=== PATIENT | male | born 1980 | race Caucasian/White ===

== ENCOUNTER 2020-11-07 13:15 | Emergency (ER) | payer OTHER ==
[~2020-11-07] VITALS: Ht 177.8 cm; Wt 120.2 kg
[2020-11-07 13:19] VITALS: BP 160/100
--- NOTE | 2020-11-07 13:28 | NUR ---
BIB C/O LAC WOUND TO LEFT THUMB X S/P INJURY 4 DAYS. LAST TDAP 3 YEARS AGO. WOUND C/D, NO BLEEDING NOTED AT THIS TIME. PATIENT STATES PAIN OF 5/10 AT THIS TIME.
--- NOTE | 2020-11-07 13:31 | NUR ---
Patient being evaluated by TAMICA MUKHERJEE at bedside.
[2020-11-07] MEDS ORDERED: BACI1PAC6 TP (13:33)
[2020-11-07] MEDS ORDERED: BACITRACIN OINT 500 UNITS/GM PKT TP ONE (13:35)
[2020-11-07 13:53] VITALS: BP 134/89
== END 2020-11-07 13:50 | disposition home or self-care (01) ==
LOC: MED 13:15
DX: S61.012D Laceration without foreign body of left thumb without damage to nail, subsequent encounter (principal); Z48.00 Encounter for change or removal of nonsurgical wound dressing; W26.0XXD Contact with knife, subsequent encounter
CPT/HCPCS: 99283

== ENCOUNTER 2021-08-19 13:56 | Emergency (ER) | payer OTHER ==
[~2021-08-19] VITALS: Ht 175.3 cm; Wt 122.0 kg
[~2021-08-19 13:56] MED LIST: BACI1PAC6 TP
[2021-08-19 14:05] VITALS: BP 147/80
--- NOTE | 2021-08-19 14:08 | NUR ---
PT AMBULATED TO ER BED 8
--- NOTE | 2021-08-19 14:11 | NUR ---
40 Y/O MALE BIB SELF C/O LOWER TOOTH PAIN AND BUCCAL SWELLING X2 DAYS. PAIN IS SHARP CURRENTLY RATED 10/10. PT STATES THAT HE HAS AN APPT. TO SEE HIS DENTIST ON SUNDAY. PT STATES HE TOOK IBUPROFEN PRIOR TO ARRIVAL TO ED. PT DENIES FEVER,CHILLS. PT DENIES SOB, CHEST PAIN. PT IS ALERT AND ORIENTED X4. PMH: HTN MEDS:IBUPROFE NKA
--- NOTE | 2021-08-19 14:15 | NUR ---
TAMICA DELGADO AT PT BEDSIDE
[2021-08-19] MEDS ORDERED: AMOX500C25 PO (14:20)
[2021-08-19] MEDS ORDERED: ACET-8386 PO (14:20)
--- NOTE | 2021-08-19 15:08 | NUR ---
Patient discharged with v/s stable. Written and verbal after care instructions given and explained. Patient alert, oriented and verbalized understanding of instructions. Ambulatory with steady gait. All questions addressed prior to discharge. ID band removed. Patient advised to follow up with PMD. Rx of HYDROCODONE/ACETAMINOPHEN/AMOXICILLIN given. Patient educated on indication of medication including possible reaction and side effects. Opportunity to ask questions provided and answered.
[2021-08-19 15:09] VITALS: BP 147/80
== END 2021-08-19 15:09 | disposition home or self-care (01) ==
LOC: MED 13:56
DX: K08.89 Other specified disorders of teeth and supporting structures (principal); Z79.2 Long term (current) use of antibiotics; Z79.891 Long term (current) use of opiate analgesic
CPT/HCPCS: 99283